=== PATIENT | male | born 1985 | race Caucasian/White ===

== ENCOUNTER 2017-10-30 18:08 | Emergency (ER) | payer OTHER ==
--- NOTE | 2017-10-30 18:26 | PDOC ---
Rapid Medical Evaluation Chief Complaint: Toothache Time Seen by Provider: 10/30/17 18:26 Medical Evaluation: 10/30/17 18:26 The patient presents with a chief complaint of: toothache I have performed a brief in-person evaluation of this patient. Pertinent physical exam findings: vss, stable I have ordered the following: na, took motrin 600 3 hours ago The patient will proceed to the ED for further evaluation. 10/30/17 18:27
[2017-10-30 18:46] VITALS: BP 165/90; PULSE 88; TEMP 99.7; BMI 29.5
--- NOTE | 2017-10-30 19:28 | PDOC ---
History of Present Illness - General Chief Complaint: Toothache Stated Complaint: HEAD PAIN Time Seen by Provider: 10/30/17 18:26 - History of Present Illness Initial Comments: 10/30/17 19:25 32-year-old male without comorbidities presents for evaluation of toothache 2 days. Minimally relieved with Motrin. No other associated symptoms. Past History - Past Medical History Allergies/Adverse Reactions: Allergies Allergy/AdvReac Type Severity Reaction Status Date / Time propafenone Allergy Verified 10/30/17 18:26 Home Medications: Ambulatory Orders Amoxicillin - [Amoxicillin 500mg Capsule -] 500 mg PO BID #20 capsule 10/30/17 Ibuprofen [Motrin -] 600 mg PO TID #30 tablet 10/30/17 COPD: No - Suicide/Smoking/Psychosocial Hx Smoking History: Current every day smoker Number of Cigarettes Smoked Daily: 10 Information on smoking cessation initiated: No Review of Systems - Review of Systems HEENTM: Yes: Dental Problems All Other Systems: Reviewed and Negative *Physical Exam - Vital Signs Last Vital Signs Temp Pulse Resp BP Pulse Ox 99.7 F H 88 18 165/90 100 10/30/17 18:27 10/30/17 18:27 10/30/17 18:27 10/30/17 18:27 10/30/17 18:27 - Physical Exam Comments: HEAD: NC/AT EYES: Conjuntiva clear Ears: Canals and TM's normal NOSE: No d/c THROAT: Moist mucous membrances, oral pharanx clear, uvula midline, or dentition multiple dental caries right upper molar is cracked NECK: Supple without adenopathy CARDIAC: S1 S2 LUNGS: CTA Full and Equal breath sounds ABDOMEN: Soft NT ND MS: Full ROM in all joints without edema NEUROLOGIC: No gross sensory or motor deficits, NVID SKIN: Normal color and temperature no lesions or rashes 10/30/17 19:26 *DC/Admit/Observation/Transfer Diagnosis at time of Disposition: Tooth ache - Discharge Dispostion Disposition: HOME Condition at time of disposition: Stable Decision to Admit order: No - Prescriptions Prescriptions: Amoxicillin - [Amoxicillin 500mg Capsule -] 500 mg PO BID #20 capsule Ibuprofen [Motrin -] 600 mg PO TID #30 tablet - Referrals Referrals: [facility] [Outside] - Patient Instructions Printed Discharge Instructions: DI for Dental Pain Additional Instructions: Take the medication the antibiotics as directed return to the emergency room should symptoms worsen. Please follow-up with dentist in one to 2 days for further evaluation and treatment options. I recommended urgent care [facility] they will see you without an appointment. - Post Discharge Activity
== END 2017-10-30 19:30 | disposition home or self-care (01) ==
LOC: JER 18:08 → JERFT 18:08
DX: K08.89 Other specified disorders of teeth and supporting structures (principal); K02.9 Dental caries, unspecified
CPT/HCPCS: 99281-25

== ENCOUNTER 2018-07-07 16:42 | Emergency (ER) | payer OTHER ==
[2018-07-07 16:52] VITALS: BP 121/85; PULSE 77; TEMP 97.9; BMI 28.3
[2018-07-07] MEDS ORDERED: KETOROLAC TROMETHAMINE 30 MG/1 ML VIAL IM ONE (17:07)
[2018-07-07] MEDS ORDERED: diazePAM 2 MG TABLET PO ONE (17:07)
--- NOTE | 2018-07-07 17:27 | PDOC ---
History of Present Illness - General Chief Complaint: Pain Stated Complaint: PAIN Time Seen by Provider: 07/07/18 16:54 History Source: Patient Exam Limitations: No Limitations - History of Present Illness Initial Comments: 07/07/18 17:06 33 year old male with history of left shoulder surgery presents with pain to left shoulder, radiating into chest from neck since last night. Past History - Past Medical History Allergies/Adverse Reactions: Allergies Allergy/AdvReac Type Severity Reaction Status Date / Time bee venom protein (honey bee) Allergy Verified 07/07/18 16:49 propofol Allergy Verified 07/07/18 16:49 Home Medications: Ambulatory Orders NK [No Known Home Medication] 07/07/18 COPD: No - Suicide/Smoking/Psychosocial Hx Smoking History: Smoker current status UNK Number of Cigarettes Smoked Daily: 10 *Physical Exam - Vital Signs Last Vital Signs Temp Pulse Resp BP Pulse Ox 97.9 F 77 16 121/85 100 07/07/18 16:51 07/07/18 16:51 07/07/18 16:51 07/07/18 16:51 07/07/18 16:51
[2018-07-07] MEDS ORDERED: KETOROLAC TROMETHAMINE 30 MG/1 ML VIAL ONE (17:46)
[2018-07-07] MEDS ORDERED: diazePAM 2 MG TABLET ONE (17:46)
[2018-07-07] MEDS ORDERED: CYCLOBENZAPRINE HCL 10 MG TABLET (FP) ONE (17:48)
[2018-07-07] MEDS ORDERED: KETOROLAC TROMETHAMINE 60 MG/2 ML VIAL ONE (17:48)
--- NOTE | 2018-07-07 17:59 | PDOC ---
History of Present Illness - General Chief Complaint: Pain Stated Complaint: PAIN Time Seen by Provider: 07/07/18 16:54 History Source: Patient Exam Limitations: No Limitations Past History - Past Medical History Allergies/Adverse Reactions: Allergies Allergy/AdvReac Type Severity Reaction Status Date / Time bee venom protein (honey bee) Allergy Verified 07/07/18 16:49 propofol Allergy Verified 07/07/18 16:49 Home Medications: Ambulatory Orders Cyclobenzaprine HCl [Flexeril -] 10 mg PO TID #20 tablet 07/07/18 COPD: No - Suicide/Smoking/Psychosocial Hx Smoking History: Smoker current status UNK Number of Cigarettes Smoked Daily: 10 Review of Systems - Review of Systems Constitutional: No: Chills, Fever HEENTM: Yes: Other (left lateral neck pain). No: Blurred Vision, Double Vision Respiratory: No: Shortness of Breath Cardiac (ROS): No: Chest Pain, Edema ABD/GI: No: Constipated, Diarrhea, Nausea, Vomiting : No: Burning, Dysuria, Discharge, Frequency, Flank Pain, Hematuria Musculoskeletal: Yes: Muscle Pain (left lateral neck), Neck Pain (with radiation to the left upper ext). No: Back Pain, Muscle Weakness Integumentary: No: Bruising, Change in Color, Erythema Neurological: Yes: Numbness, Paresthesia. No: Headache, Weakness *Physical Exam - Vital Signs Last Vital Signs Temp Pulse Resp BP Pulse Ox 97.9 F 77 16 121/85 100 07/07/18 16:51 07/07/18 16:51 07/07/18 16:51 07/07/18 16:51 07/07/18 16:51 - Physical Exam General Appearance: Yes: Nourished, Appropriately Dressed. No: Apparent Distress HEENT: positive: EOMI, LIN, Normal Voice Neck: positive: Supple, Decreased range of motion (due to pain), Tender lateral (left lateral). negative: Rigid, Carotid bruit, Rigidity, Tender midline Respiratory/Chest: positive: Lungs Clear, Normal Breath Sounds. negative: Respiratory Distress, Rapid RR, Crackles, Rales, Rhonchi, Stridor, Wheezing Cardiovascular: positive: Regular Rhythm, Regular Rate, S1, S2. negative: Edema , JVD, Murmur Vascular Pulses: Dorsalis-Pedis (R): 4+, Doralis-Pedis (L): 4+ Gastrointestinal/Abdominal: positive: Flat, Soft. negative: Pulsatile Mass, Distended, Guarding, Rebound, Tenderness Extremity: positive: Normal Capillary Refill, Normal Inspection *DC/Admit/Observation/Transfer Diagnosis at time of Disposition: Neck muscle strain Qualifiers: Encounter type: initial encounter Qualified Code(s): S16.1XXA - Strain of muscle, fascia and tendon at neck level, initial encounter - Discharge Dispostion Disposition: HOME Condition at time of disposition: Stable Decision to Admit order: No - Prescriptions Prescriptions: Cyclobenzaprine HCl [Flexeril -] 10 mg PO TID #20 tablet - Referrals - Patient Instructions Printed Discharge Instructions: DI for Muscle Strain Additional Instructions: Please see your Primary Doctor within the next 48 hours. Take the medication for muscle relaxation as prescribed and take over the counter NSAID medications such as Motrin every 4-6 hours for pain and swelling relief. Do not take the Muscle relaxant prior to driving. Use Ice for pain and swelling relief for the neck 2-3 days. Return to the ER for new or concerning symptoms including but not limited to: weakness into your arm, severe pain in your neck, high fevers. Thank you - Post Discharge Activity
[2018-07-07] MEDS ORDERED: KETOROLAC TROMETHAMINE 60 MG/2 ML VIAL IM ONE (18:13)
--- NOTE | 2018-07-07 18:20 | PDOC ---
Documentation entered by Jodi Alva SCRIBE, acting as scribe for Santosh Marti MD. Santosh Marti MD: This documentation has been prepared by the ramoibe, Jodi Alva SCRIBE, under my direction and personally reviewed by me in its entirety. I confirm that the documentation accurately reflects all work, treatment, procedures, and medical decision making performed by me. Attending Attestation - Resident Resident Name: Jaime Marquez - [facility] HPI: 07/07/18 18:16 The patient is a 32 year old male with a significant past medical history of heartburn who presents to the emergency department with worsening left neck pain for 2 days. The patient reports that he was at work yesterday carrying an extension ladder with a coworker when he strained his neck. The patient state states that while carrying the ladder, the person behind him tripped, fell and let go of his end. The patient states that he subsequently let go of his end when he realized that his partner tripped. The patient states that since the incident his left neck pain had been worsening. He states that he began to experience some associated radiation of his left neck pain down his left arm that feels like a vibration. The patient reports taking some tylenol this morning with no apparent relief. He states that he has experienced similar incidents like this in the past by which he used an icyhot patch to relieve his pain. The patient denies any weakness, numbness, or tingling sensation. He denies any fever, chills, nausea, vomiting, diarrhea, constipation or urinary symptoms. He denies any chest pain, shortness of breath, headache or dizziness. The patient denies any other complaints. - Physicial Exam PE: 07/07/18 18:17 Patient is awake and alert, well-nourished, in no distress Normocephalic and atraumatic PERRLA, EOMI Neck is supple, no midline bony tenderness to palpation, + reproducible tenderness on palpation of left sternocleidomastoid Neurovascularly intact distally Gait stable - Medical Decision Making 07/07/18 18:19 Patient is a 33-year-old male who presents with signs and symptoms of acute cervical strain without focal neurological deficits. No indication for imaging at this time. We'll administer NSAIDs and muscle relaxants. Will discharge with outpatient follow-up.
[2018-07-07] MEDS ORDERED: CYCLOBENZAPRINE HCL 10 MG TABLET (FP) PO ONE (18:37)
== END 2018-07-07 19:05 | disposition home or self-care (01) ==
LOC: JER 16:42 → JERFT 16:42 → JER 19:05
PROC: 3E0233Z Introduction of Anti-inflammatory into Muscle, Percutaneous Approach (ICD-10-PCS; principal; 2018-07-07)
DX: S16.1XXA Strain of muscle, fascia and tendon at neck level, initial encounter (principal); X50.9XXA Other and unspecified overexertion or strenuous movements or postures, initial encounter; Y93.89 Activity, other specified; Y92.89 Other specified places as the place of occurrence of the external cause; Y99.8 Other external cause status
CPT/HCPCS: 96372; 99282-25

== ENCOUNTER 2020-12-05 03:04 | Emergency (ER) | payer SELFPAY ==
[2020-12-05 03:36] VITALS: BP 122/83; PULSE 94; TEMP 98.7; BMI 27.6
[2020-12-05] MEDS ORDERED: METHOCARBAMOL 500 MG TABLET PO ONE (04:36)
[2020-12-05] MEDS ORDERED: LIDOCAINE 5% TOPICAL PATCH TP ONE (04:36)
[2020-12-05] MEDS ORDERED: IBUPROFEN 600 MG TABLET (FP) PO ONE ×2 (04:43→04:50)
[2020-12-05] MEDS ORDERED: METHOCARBAMOL 500 MG TABLET ONE ×2 (04:50→04:51)
[2020-12-05] MEDS ORDERED: LIDOCAINE 5% TOPICAL PATCH ONE (04:51)
[2020-12-05] MEDS ORDERED: LIDOCAINE PATCH REMOVAL MC SCH (22:00)
== END 2020-12-05 09:55 | disposition home or self-care (01) ==
LOC: JER 03:04
DX: M25.561 Pain in right knee (principal); M54.50 Low back pain, unspecified; Y04.8XXA Assault by other bodily force, initial encounter
CPT/HCPCS: 72100-TC-FY; 73562-TC-RT-FY; 99284-25

== ENCOUNTER 2021-03-04 21:21 | Emergency (ER) | payer SELFPAY ==
[2021-03-04] MEDS ORDERED: NALOXONE HCL 0.4 MG/ML VIAL ONE (21:30)
[2021-03-04 21:35] VITALS: BMI 27.4
[2021-03-05 01:19] VITALS: BP 107/69; PULSE 87; TEMP 97.9
== END 2021-03-05 01:43 | disposition left against medical advice (07) ==
LOC: JER 21:21
DX: T50.901A Poisoning by unspecified drugs, medicaments and biological substances, accidental (unintentional), initial encounter (principal)
CPT/HCPCS: 82962; 99283-25